=== PATIENT | male | born 1965 | race Caucasian/White ===

== ENCOUNTER 2017-02-04 11:38 | Emergency (ER) | payer OTHER ==
[~2017-02-04] VITALS: Ht 177.8 cm; Wt 90.7 kg
--- NOTE | 2017-02-04 12:29 | ED CARDIAC/CP/PALPITATIONS ---
History of Present Illness General Chief Complaint: Chest Pain Stated Complaint: C/P Source: patient Exam Limitations: no limitations Vital Signs & Intake/Output Vital Signs & Intake/Output Vital Signs Date Time Temp Pulse Resp B/P B/P Pulse O2 O2 Flow FiO2 Mean Ox Delivery Rate 02/04 1709 98.3 89 15 140/74 100 Room Air 02/04 1604 83 16 139/93 97 Room Air 02/04 1436 78 20 146/92 96 Room Air 02/04 1314 97.4 74 16 152/100 06 1311 97.4 74 16 152/100 96 Room Air 02/04 1148 98.9 85 15 177/104 100 Room Air Allergies Coded Allergies: No Known Allergies (02/04/17) Reconcile Medications Clonazepam (Klonopin) 0.5 MG TABLET 1 TAB PO BIDP PRN ANXIETY (Reported) Lisinopril 10 MG TABLET 1 TAB PO DAILY HTN (Reported) Pravastatin Sodium (Pravachol) 20 MG TABLET 1 TAB PO DAILY HPL (Reported) Triage Note: PT TO ED FOR HTN AND CHEST PRESSURE SINCE THIS AM, PT REPORTING HE WAS RECENTLY TAKEN OFF ONE OF HIS BP MEDS AND WHEN HE TOOK HIS ROSALINDA THIS MORNING NOTICED IT WAS HIGH. Triage Nurses Notes Reviewed? yes HPI: 51-year-old male arrived through triaged to room 1 for evaluation of chest pressure he felt while at work this morning. He reports he was sitting at his computer when he started to have substernal chest pressure mild in nature. He reports he just didn't feel well and took his blood pressure which was extremely elevated. Denied any shortness of breath, lightheadedness, dizziness, palpitations, visual disturbances or headache. He kept taking his blood pressure and this made him nervous because it was getting higher. The chest pressure resolved on its own after coming into the emergency department. His mild in nature, nonradiating. 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 He is on lisinopril and he was recently taken off amlodipine but he does not know why. Lisinopril was decreased from 20 mg to 10 mg and amlodipine was discontinued. And he does not know why. Dez does not have a history of diabetes or tobacco use or family history of coronary artery disease. His risk factors are hypertension and hyperlipidemia. Past History Travel History Traveled to [place] past 21 day No Medical History Any Pertinent Medical History? see below for history Neurological: NONE EENT: NONE Cardiovascular: HTN HIGH CHOLESTEROL "THORACIC OUTLET SYNDROME Respiratory: NONE Gastrointestinal: NONE Hepatic: NONE Renal: NONE Musculoskeletal: NONE Psychiatric: anxiety, PTSD Endocrine: NONE Blood Disorders: NONE Cancer(s): NONE Surgical History Surgical History: none Psychosocial History What is your primary language Yemeni Tobacco Use: Never used ETOH Use: occasional use Illicit Drug Use: denies illicit drug use Family History Hx Contributory? No Review of Systems Review of Systems Constitutional: Reports: no symptoms. EENTM: Reports: no symptoms. Respiratory: Reports: no symptoms. Cardiovascular: Reports: no symptoms. GI: Reports: no symptoms. Genitourinary: Reports: no symptoms. Musculoskeletal: Reports: no symptoms. Skin: Reports: no symptoms. Neurological/Psychological: Reports: no symptoms. Hematologic/Endocrine: Reports: no symptoms. Immunologic/Allergic: Reports: no symptoms. All Other Systems: Reviewed and Negative Physical Exam Physical Exam General Appearance: well developed/nourished, no apparent distress, alert, awake , comfortable Head: atraumatic, normal appearance Eyes: Bilateral: normal appearance, PERRL, EOMI. Ears, Nose, Throat: normal pharynx, normal ENT inspection Neck: normal inspection, supple, full range of motion Respiratory: normal breath sounds, chest non-tender, no respiratory distress Cardiovascular: regular rate/rhythm Gastrointestinal: normal bowel sounds, soft, non-tender Extremities: normal inspection, normal capillary refill, normal range of motion, no edema Neurologic/Psych: no motor/sensory deficits, awake, alert, oriented x 3, normal gait, normal mood/affect Skin: intact, normal color, warm/dry Core Measures ACS in differential dx? Yes Severe Sepsis Present: No Septic Shock Present: No Progress Differential Diagnosis: ACS, HTN- SYMPTOMATIC Plan of Care: Orders Procedure Date/time Status Regular Diet 02/04 D Active TROPONIN LEVEL 02/04 1600 Complete EKG 02/04 1600 Active Telemetry/Ethylbenzene Cracking Supervisor 02/04 1208 Active TROPONIN LEVEL 02/04 1208 Complete MAGNESIUM 02/04 1208 Complete COMPREHENSIVE METABOLIC PANEL 02/04 1208 Complete CBC WITHOUT DIFFERENTIAL 02/04 1208 Complete EKG 02/04 1139 Active Laboratory Tests 02/04/17 1551: Troponin I < 0.01 02/04/17 1225: Anion Gap 9, Estimated GFR > 60, BUN/Creatinine Ratio 13.3, Glucose 93, Calcium 8.5, Magnesium 1.5 L, Total Bilirubin 0.4, AST 23, ALT 50, Alkaline Phosphatase 66, Troponin I < 0.01, Total Protein 6.7, Albumin 4.2, Globulin 2.5, Albumin/ Globulin Ratio 1.7, CBC w Diff NO MAN DIFF REQ, RBC 4.45 L, MCV 94.7 H, MCH 32.1 H, RDW 13.0, MPV 8.9, Gran % 51.4, Lymphocytes % 35.8, Monocytes % 10.4 H , Eosinophils % 1.7, Basophils % 0.7, Absolute Granulocytes 2.4, Absolute Lymphocytes 1.7, Absolute Monocytes 0.5, Absolute Eosinophils 0.1, Absolute Basophils 0, PUBS MCHC 33.9 Initial ED EKG: NSR Repeat EKG: unchanged Comments: PATIENT: DEZ CHAHAL PRESENT AGE: 51 PATIENT ACCOUNT NO: [id number] : 66 LOCATION: [facility], [place] ORDERING PHYSICIAN: STAR MNEDES APRN SERVICE DATE: 02/04/17 EXAM TYPE: RAD - XRY-PORTABLE CHEST XRAY EXAMINATION: XR PORTABLE CHEST CLINICAL INFORMATION: Chest pain COMPARISON: None TECHNIQUE: Portable AP 85 degrees upright view of the chest was obtained. FINDINGS: The lung volumes are decreased and clear. No consolidation, atelectasis or edema. The heart size is not enlarged. IMPRESSION: Normal examination. Low lung volumes. DICTATED BY: ESEQUIEL VILLAFUERTE MD DATE/TIME DICTATED:02/04/171329 METAL FORGER'S ASSISTANT:GORDON DATE/TIME TRANSCRIBED:02/04/171329 CONFIDENTIAL, DO NOT COPY WITHOUT APPROPRIATE AUTHORIZATION. <Electronically signed in Other Vendor System> SIGNED BY: ESEQUIEL VILLAFUERTE MD 02/04/17 1016 2:17 PM explained blood work results, EKG the patient and the need to repeat a troponin and ECG and 4 hours. Most likely related to elevated blood pressure, symptomatic from that but he will need a second troponin to be cleared to be discharged home. He agrees. Lunch order has been placed. 2:56 PM CASE ALREADY DISCUSSED WITH DR. ANDRADE BUT ALSO NOW discussed with Dr. PERDUE. He would like a 6 hour troponin and if he remains pain free he will be discharged home for outpatient cardiology follow-up including echo and stress test. The patient does not want to stay 6 hours, he would agree to a 4 hour but not 6 hours he is adamant about this. I discussed this with Dr. Andrade, we will get a 4 hour troponin and discharge home. Discussed blood works and second EKG with patient and everything is stable. He continues to be asymptomatic and blood pressure is now controlled. He will follow up with [facility]/cardiology as directed for further cardiovascular testing. Departure Departure Time of Disposition: 1649 Disposition: HOME OR SELF CARE Condition: Stable Clinical Impression Primary Impression: Chest pain Qualifiers: Chest pain type: unspecified Qualified Code: R07.9 - Chest pain, unspecified Secondary Impressions: HTN (hypertension) Qualifiers: Hypertension type: essential hypertension Qualified Code: I10 - Essential (primary) hypertension Referrals: ROBERT PERDUE MD Additional Instructions: pLEASE follow up with Robert Perdue MD or [facility] this week. He will need additional cardiac testing. Take amlodipine 10 mg daily has already directed. Please return to the emergency department for any worsening or concerning symptoms including increased chest pain, shortness of breath, lightheadedness, dizziness or palpitations. Departure Forms: Customer Survey General Discharge Information Critical Care Note Critical Care Note Critical Care Time: non-applicable
[2017-02-04 12:43] LABS: ABSOLUTE BASOPHIL COUNT 0 /CUMM (0.0-0.2); ABSOLUTE EOSINOPHIL COUNT 0.1 /CUMM (0.0-0.7); ABSOLUTE GRANULOCYTE CT 2.4 /CUMM (1.4-6.5); ABSOLUTE LYMPH COUNT 1.7 /CUMM (1.2-3.4); ABSOLUTE MONOCYTE COUNT 0.5 /CUMM (0.10-0.60); BASOPHIL % 0.7 % (0.0-2.0); EOSINOPHIL % 1.7 % (0-5); GRANULOCYTE % 51.4 % (42.2-75.2); HEMATOCRIT 42.2 % (42-52); MEAN CORPUSCULAR HGB 32.1 PG (27.0-31.0); MEAN CORPUSCULAR HGB CONC 33.9 G/DL (33.0-37.0); MEAN CORPUSCULAR VOLUME 94.7 FL (80.0-94.0); MEAN PLATELET VOLUME 8.9 FL (7.4-10.4); PLATELET COUNT 182 /CUMM (130-400); RED BLOOD CELL CT 4.45 /CUMM (4.70-6.10); WHITE BLOOD CELL COUNT 4.7 /CUMM (4.8-10.8)
[2017-02-04] MEDS ORDERED: KLONOPIN0.5 M1 PO (13:00)
[2017-02-04] MEDS ORDERED: LISINOPRIL10 M1 PO (13:00)
[2017-02-04] MEDS ORDERED: PRAVACHOL20 M2 PO (13:00)
--- NOTE | 2017-02-04 13:34 | RADIOLOGY REPORT ---
EXAMINATION: XR PORTABLE CHEST CLINICAL INFORMATION: Chest pain COMPARISON: None TECHNIQUE: Portable AP 85 degrees upright view of the chest was obtained. FINDINGS: The lung volumes are decreased and clear. No consolidation, atelectasis or edema. The heart size is not enlarged. IMPRESSION: Normal examination. Low lung volumes.
== END 2017-02-04 17:09 ==
LOC: ERH 11:38
PROVIDERS: Nurse Practitioner Family
DX: R07.2 Precordial pain (principal); I10 Essential (primary) hypertension
CPT/HCPCS: 93005; 93010